=== PATIENT | female | born 1950 | race Caucasian/White ===

== ENCOUNTER 2016-11-17 07:58 | Inpatient (IN) | payer MEDICARE, OTHER ==
--- NOTE | 2016-11-17 14:23 | RAD ---
EXAM DESCRIPTION: Chest,2 Views CLINICAL HISTORY: TOBACCO DEPENDENCE SYNDROME COMPARISON: None TECHNIQUE: PA/lateral FINDINGS: The lungs are well expanded and clear. No infiltrates or effusions or masses are noted. The heart is normal in size and shape with no evidence of vascular congestion. The audrey and mediastinum demonstrate normal contours. The bony spine and chest wall is normal for age in appearance. IMPRESSION: Normal chest, two views Electronically signed by: Oj Ernandez MD 11/17/2016 2:22 PM CDT
--- NOTE | 2016-11-17 14:40 | CT ---
EXAM DESCRIPTION: CT ABDOMEN AND PELVIS WITH CONTRAST CLINICAL HISTORY: UNSPECIFIED ABDOMINAL PAIN COMPARISON: None Available. TECHNIQUE: CT of the abdomen and pelvis are performed during IV bolus administration of nonionic IV contrast. Oral contrast media is not administered This exam was performed according to our departmental dose-optimization program, which includes automated exposure control, adjustment of the mA and/or kV according to patient size and/or use of iterative reconstruction technique. FINDINGS: The lung bases are clear without infiltrates or effusions or mass. A small retrocardiac hiatal hernia is present. The liver is diffusely fatty replaced without focal mass. The gallbladder is surgically absent with normal ductal structures. Mild splenomegaly is present. Pancreas is normal in appearance without atrophy or cyst or mass. The adrenal glands are normal. The kidneys intensely enhance with no evidence of hydronephrosis or stone formation. One tiny right cortical low-density probable subcentimeter cyst is present with two adjacent similar structures involving the lower pole of the left kidney laterally. The stomach and small bowel are unremarkable. Mild diverticulosis of the left colon is present without acute inflammation. The right colon is abnormal distal or cephalad to the region of the cecum and ileocecal valve. An occasional diverticulum of the right colon is noted. Tiny amount of air lies just medial and cephalad to the ileocecal valve and suggest a tiny contained perforation without free abdominal air. A drainable abscess or fluid collection is not apparent. The terminal ileum and cecum appear essentially normal in appearance. Continuing into the pelvis the uterus is surgically absent and no free pelvic fluid is noted in the bladder is incompletely distended but normal in appearance. The anterior abdominal wall is unremarkable moderate degenerative changes at in the mid and lower lumbar spine without compression deformity is noted. Mild levoscoliosis of the spine is apparent. IMPRESSION: 1. Abnormal right colon with inflammatory changes extending from the level of the ileocecal valve to the hepatic flexure with mild bowel wall thickening and moderate surrounding pericolic mesenteric inflammatory changes with one or two bubbles of suspected loculated air extraluminal just cephalad to the ileocecal valve. Right-sided colitis or diverticulitis with a contained small perforation is suspected. 2. The cecum and terminal ileum in expected region of the appendix appear normal without identification of the appendix suggesting prior resection. 3. Scattered small number of diverticula in the right colon and moderate left colonic diverticulosis without inflammation of the left colon. 4. Fatty replaced liver and modest splenomegaly with prior cholecystectomy noted. 5. Degenerative disc disease and mild levoscoliosis of the spine. 6. Results will be discussed with the patient's caregiver Electronically signed by: Oj Ernandez MD 11/17/2016 2:39 PM CDT
[2016-11-17] MEDS ORDERED: SODIUM CHLORIDE 0.9% (FLUSH) 10 ML SYG IV PRN (17:02)
[2016-11-17] MEDS ORDERED: GLUCAGON INJ 1 MG VIAL SUBCU PRN (17:02)
[2016-11-17] MEDS ORDERED: DEXTROSE 50% 25 GM/50 ML SYG IV PRN (17:02)
--- NOTE | 2016-11-17 17:04 | HP ---
SUPERVISING PHYSICIAN: Uziel Kenyon M.D. CHIEF COMPLAINT: Acute abdominal pain. HISTORY OF PRESENT ILLNESS: Ms. Robles is a 66 year-old female patient who was seen in [facility] today by Divina Elmore, Nurse Practitioner, for abdominal pains. The patient notes that she had started having some abdominal pains 2 weeks previous to the visit today. She noted that she went to her son's and ate some food that she normally does not eat, and started having lower abdominal pains that were sharp and felt more gassy and bloated for about 24 hours. The pain then returned 2 days later and has not gone away since. She notes that the pain ranges anywhere from 1 to 10 on the pain scale depending on if she is eating or ambulatory. She denies any fevers, chills, nausea or vomiting, but does report that she has had some watery type diarrhea, but deines any hematochezia. Laboratory studies today in the clinic showed her to have a normal white count, H&H and differential. Chemistries only showed mildly low potassium and normal liver functions. Urinalysis was within normal limits as well. She was sent to the hospital for a CT of the abdomen and pelvis with contrast and per radiology interpretation it was noted that the patient had an abnormal right colon with inflammatory changes that were extending from the level of the ileocecal valve to the hepatic flexure with some note of some bubbles suspected of loculated air extraluminal just cephalad to the ileocecal valve. Concerns for right sided colitis and diverticulitis with a small perforation were suspected. The patient was then referred back to the clinic. Dr. Lin was consulted by Divina Elmore who then requested that the patient be admitted to the hospital for continuation of treatment and further evaluation. The patient was directly admitted in stable condition. PAST MEDICAL HISTORY: 1. Chronic constipation. 2. Osteoarthritis. 3. Macular degeneration. 4. Hypertension. PAST SURGICAL HISTORY: 1. Bowel surgery with a partial resection secondary to sepsis from a ruptured appendix in 1972. 2. Exploratory surgery secondary to the previous bowel resection that occurred in 1974 that was performed in 1983. 3. Cholecystectomy in 2004. 4. Hysterectomy in 1984. 5. Appendectomy in 1972. HOME MEDICATIONS: Please refer to the electronic medical records for an updated verified list of medications. ALLERGIES: CODEINE results in nausea. FAMILY HISTORY: Father had a history of alcohol abuse and secondary to malignant tumor of the colon in 1980. Mother had dementia and at age 94, also had diabetes. She has 1 brother who is living but has had a previous myocardial infarction at age 33. 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 She lives in [place]. She is . She smokes 1-1/2 packs per day and has so for many years. She denies any alcohol or illicit drug use. REVIEW OF SYSTEMS: CONSTITUTIONAL: The patient denies any fevers, chills or weight changes. HEENT: Denies any nasal congestion, headaches, sore throats. RESPIRATORY: Denies any cough, shortness of breath. CARDIOVASCULAR: Denies any chest pains, palpitations or syncopal episodes. ABDOMEN: As noted in the History of Present Illness, right lower and left abdominal pains but denies any nausea or vomiting, but has had some watery diarrhea. GENITOURINARY: Denies any dysuria, hematuria or other urinary symptoms. NEUROLOGIC: Denies any neurologic symptoms, headaches, dizziness, syncopal episodes or vision changes. PHYSICAL EXAMINATION: VITAL SIGNS: On admission, blood pressure 130/80, heart rate 85, saturations 94 % on room air, temperature 97.3. Weight 113.3 kg. GENERAL: The patient is in no acute distress on admission. She appears to be comfortable. She is alert, well-nourished, well-hydrated. HEENT: Tympanic membranes are clear bilaterally. Oropharynx was pink and moist without any lesions. NECK: Supple, non-tender with full range of motion. No jugular venous distention. CHEST: Lungs were clear to auscultation bilaterally without any rhonchi, wheezing or rales. CARDIOVASCULAR: Regular rate and rhythm without appreciable murmurs, gallops, or rubs. ABDOMEN: Obese, soft with diffuse tenderness to the right and left lower quadrants with no rebound tenderness noted. No guarding. EXTREMITIES: No clubbing, cyanosis or edema. NEUROLOGIC: She is alert and oriented times three. Facial features are symmetrical. Extraocular movements are within normal limits. There was no notable nystagmus. Cranial nerves II=XII are grossly intact. LABORATORY: CBC showed to be within normal limits with a white count of 7.5. Chemistries showed low potassium of 3.4, otherwise electrolytes were within normal limits. Creatinine was 0.53, BUN 14, glucose 144, hemoglobin A1c was 5.4 , lactic acid 1.1, magnesium 2.2, calcium 8.7. Liver functions were within normal limits. Amylase and lipase were pending. Urinalysis showed to be within normal limits except for just a slightly elevated urobilinogen. MICROBIOLOGY: Blood cultures are pending times 2. RADIOLOGY: Chest x-ray prior to admission per radiology interpretation two view chest showed normal chest. She also had an abdominal/pelvic CT with contrast and per radiology interpretation there was note of abnormal right colon with inflammatory changes extending from the level of the ileocecal valve to the hepatic flexure with mild bowel wall thickening and moderate pericolic mesenteric inflammatory changes with 1 or 2 bubbles of suspected loculated air extraluminal just cephalad to the ileocecal valve. Right sided colitis or diverticulitis would contain small perforation was suspected. Please see full report for full details. ASSESSMENT: 1. Acute abdominal pain with concerns for right sided colitis versus diverticulitis with a microperforation and notable mesenteric inflammatory changes. 2. History of chronic constipation. 3. History of arthritis. 4. History of macular degeneration. 5. Mild electrolyte imbalance to include hypokalemia. 6. Obesity with body mass index of 36.9. 7. Nicotine addiction with a 45 to 50 pack year smoking habit PLAN: The patient was directly admitted to the Medical/Surgical floor for further treatment and evaluation with concerns for colitis versus diverticulitis with a microperforation as noted above. Dr. Lin has been consulted and will see the patient to assist with ongoing plan of care. She will be NPO for bowel rest with supportive IV fluids to include initially half normal saline with 20 meq of potassium at 125 cc an hour. She will be started ont parenteral antibiotics to include Levaquin and Flagyl after completion of blood cultures. She will be provided pain management with Morphine as needed as well as antiemetics with Zofran and Phenergan. Will plan to repeat an abdominal series and laboratory studies in the morning and await Dr. Lin's consultation. The patient will be on telemetry and monitored closely. Will start Protonix for gastric protection while she remains NPO. She will be encouraged to stop smoking and provided with nicotine patch while in hospital. Anticipate length of stay to be 3 to 5 days pending clinical improvement and stabilization. Once able to be discharged, she will need close clinical followup in the outpatient setting. Until then, will continue to monitor and treat appropriately. #[id number] and [id number] [facility]
[2016-11-17] MEDS ORDERED: PIPERACILLIN/TAZOBACTAM 3.375 GM VIAL IVPB ONE (17:26)
[2016-11-17] MEDS ORDERED: SODIUM CHLORIDE 0.9% 100ML 100 ML IVPB ONE (17:27)
[2016-11-17] MEDS ORDERED: IV SET AND CAP CHANGE INJ INJ SCH (17:30)
[2016-11-17] MEDS ORDERED: PIPERACILLIN/TAZOBACTAM 3.375 GM in SODIUM CHLORIDE 0.9% 100ML 100 ML IVPB SCH (17:30)
[2016-11-17] MEDS ORDERED: NICOTINE PATCH 14 MG TD SCH (19:00)
[2016-11-17] MEDS: KCL 20MEQ/0.45% NS 1,000 ML IVS PRN (19:55)
[2016-11-17] MEDS ORDERED: levoFLOXacin 500MG IV 100 ML IVPB ONE (20:14)
[2016-11-17] MEDS: MORPHINE SULFATE INJ 10 MG/ML VIAL IV PRN (20:54)
[2016-11-17] MEDS ORDERED: SODIUM CHLORIDE 0.9% (FLUSH) 10 ML SYG IV SCH (21:00)
[2016-11-17] MEDS: INSULIN LISPRO 100 UNITS/ML PEN SUBCU SCH (21:03)
[2016-11-17] MEDS: levoFLOXacin 500MG IV 500 MG in PREMIX BAG 1 BAG IVPB SCH (21:05)
[2016-11-17] MEDS ORDERED: PANTOPRAZOLE SODIUM IV 40 MG VIAL IV SCH (22:30)
[2016-11-17] MEDS: TEMAZEPAM 15 MG CAP PO PRN (22:32)
[2016-11-17] MEDS: ONDANSETRON INJ 4 MG/2 ML VIAL IV PRN (22:32)
[2016-11-17] MEDS: metroNIDAZOLE IV PREMIX 500MG 500 MG in PREMIX BAG 1 BAG IVPB SCH (22:37)
[2016-11-18] MEDS ORDERED: metroNIDAZOLE IV PREMIX 500MG 100 ML IVPB ONE ×3 (05:10→19:38)
[2016-11-18] MEDS: metroNIDAZOLE IV PREMIX 500MG 500 MG in PREMIX BAG 1 BAG IVPB SCH ×3 (05:12→21:22)
[2016-11-18] MEDS: INSULIN LISPRO 100 UNITS/ML PEN SUBCU SCH ×4 (07:29→17:53)
--- NOTE | 2016-11-18 08:21 | RAD ---
EXAM DESCRIPTION: Abdomen Flat Upright CLINICAL HISTORY: 66 years Female, diverticulitis vs colitis RLQ w/ Microperferation COMPARISON: None. FINDINGS: A single view of the abdomen demonstrates degenerative change and scoliosis of the lumbar spine to the left with a normal bowel gas pattern. No evidence of obstruction or ileus is noted on this supine view. No secondary signs of perforation are noted but a supine view of the abdomen is significantly insensitive to evaluation for free abdominal perforation. No soft tissue masses are seen and no unusual calculi noted. IMPRESSION: Nonspecific abdomen one view without evidence of obstruction or ileus. No obvious a right lower quadrant mass or unusual gas collection is seen. Electronically signed by: Oj Ernandez MD 11/18/2016 8:19 AM CDT
[2016-11-18] MEDS: KCL 20MEQ/0.45% NS 1,000 ML IVS PRN ×2 (08:31→18:07)
[2016-11-18] MEDS ORDERED: MULTIPLE VITAMINS W/ MINERALS 1 EA TAB PO SCH (09:00)
[2016-11-18] MEDS: MORPHINE SULFATE INJ 10 MG/ML VIAL IV PRN ×2 (13:25→17:07)
--- NOTE | 2016-11-18 13:42 | CONS ---
DATE OF CONSULTATION: 11/18/16 HISTORY OF PRESENT ILLNESS: The patient is a 66-year-old female who was admitted from [facility] for right sided abdominal pain and an abnormal CT scan worrisome for a microperforation of a possible right sided diverticulum. She denied fever or chills. She has had the pain for at least two weeks. She initially associated with eating food that she is not used to eating with her children, but no one else got sick with this. She has had some loose stools which she calls watery type diarrhea, but has had no hematochezia or hematemesis or melena. PAST MEDICAL HISTORY: 1. Osteoarthritis. 2. Macular degeneration. 3. Hypertension. PAST SURGICAL HISTORY: 1. Bowel resection for a badly ruptured appendix, likely a cecectomy or limited right hemicolectomy with primary anastomosis. That was done here in [place] in 1972. 2. Cholecystectomy. 3. Hysterectomy. 4. Appendectomy. 5. Exploratory laparotomy in 1983 for the possibility of . CURRENT MEDICATIONS: Please see nursing notes for medications. ALLERGIES: CODEINE WHICH CAUSES NAUSEA. FAMILY HISTORY: Positive for carcinoma of the colon in her father, diabetes and a brother who had a myocardial infarction at age 33. SOCIAL HISTORY: The patient is . 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 She smokes 1-1/2 packs of cigarettes per day and has greater than a 50 pack year history of tobacco abuse. She denies alcohol use or street drug use. REVIEW OF SYSTEMS: There has been no weight loss, no previous illness, episode of like illness. She does have some headaches. She denies chest pain or shortness of breath. She denies urinary tract symptoms. She denies loss of strength, dizziness. PHYSICAL EXAMINATION: GENERAL: The patient is awake, alert, cooperative, in minimal distress. VITAL SIGNS: The patient is currently afebrile, normotensive. HEENT: Sclerae nonicteric. Mucous membranes moist. NECK: Without adenopathy. BACK: Without CVA tenderness. CHEST: Equal breath sounds bilaterally. HEART: Regular. ABDOMEN: Soft. Tenderness in the right lower quadrant to deep palpation. There is no mass or guarding noted. Bowel sounds are active. PELVIC/RECTAL: Deferred. EXTREMITIES: Without cyanosis, clubbing or edema. LABORATORY: Normal white count. Potassium somewhat low. Creatinine 0.53. Hemoglobin A1c 5.4. Amylase and lipase were within normal limits. Urinalysis was okay. Chest x-ray was within normal limits. As noted, CT scan showed inflammatory changes around the level of would have been the ileocecal valve with bowel wall thickening and pericolic inflammatory changes with bubbles which would appear to be loculated air, extraluminal in that area. ASSESSMENT: 1. Abdominal pain secondary to colitis or diverticulitis with microperforation. PLAN: Continue NPO except for ice chips. Continue IV antibiotics. Advance diet as the patient's pain resolves. Since she has a normal white count and no fever, assume she resolves, she will probably require 10 to 14 days of outpatient antibiotic. #[id number] [facility]
--- NOTE | 2016-11-18 15:02 | PN ---
SUPERVISING PHYSICIAN: Uziel Kenyon MD DATE: 11/18/16 SUBJECTIVE: The patient states her pain is much better today. She has been afebrile. She still does have some pain towards the lower left and right quadrants. She has had no nausea or vomiting. OBJECTIVE: VITAL SIGNS: Temperature 97.9. Pulse 74. Blood pressure 124/86. Respirations 20. Saturation 97% on room air. I&Os show positive balance of 697 with 2247 in, 1550 out. Weight 112.0 kg. CHEST: Lungs clear to auscultation bilaterally. HEART: Regular rate and rhythm. ABDOMEN: Obese, but soft. Positive bowel sounds although diminished somewhat. Mild tenderness noted on palpation across the left lower quadrant. EXTREMITIES: No cyanosis, clubbing or edema. NEUROLOGIC: Alert and oriented times three. LABORATORY: CBC remains within normal limits. Chemistries continue to show low potassium despite replacement with potassium now 3.5, BUN 12, creatinine 0.47, glucose 103, calcium 8.2. MICROBIOLOGY: Blood cultures remain negative. RADIOLOGY: Abdominal x-ray this morning per radiologic interpretation, single view abdomen, shows nonspecific abdomen without any evidence of obstruction or ileus. ASSESSMENT: 1. Abdominal pain secondary to colitis or diverticulitis with microperforation , currently on parenteral antibiotic to include Levaquin and Flagyl. 2. History of chronic constipation. 3. History of arthritis. 4. History of macular degeneration. 5. Persistent mild electrolyte imbalance to include hypokalemia despite replacement. 6. Obesity with body mass index of 36.9. 7. Nicotine addiction with a 45 to 50 pack year smoking habit PLAN: We will continue current plan of care to include NPO with the exception of ice chips. We will continue IV antibiotics to include Levaquin and Flagyl. We will plan to advance her diet as her pain resolves. We will continue her on her laboratory studies with anticipate of discharge in the next two to three days pending the patient's clinical progression. We will anticipate she will need continued antibiotic therapy to include up to 10 to 14 days of antibiotics in the outpatient setting once discharged. Until discharge, we will continue to monitor the patient closely and treat appropriately. #[id number] [facility]
[2016-11-18] MEDS: ONDANSETRON INJ 4 MG/2 ML VIAL IV PRN (17:20)
[2016-11-18] MEDS ORDERED: levoFLOXacin 500MG IV 100 ML IVPB ONE (18:02)
[2016-11-18] MEDS: levoFLOXacin 500MG IV 500 MG in PREMIX BAG 1 BAG IVPB SCH (18:04)
[2016-11-18] MEDS ORDERED: NICOTINE PATCH 14 MG TD ONE (19:38)
[2016-11-18] MEDS ORDERED: PANTOPRAZOLE SODIUM IV 40 MG VIAL ONE (19:39)
[2016-11-18] MEDS: PANTOPRAZOLE SODIUM IV 40 MG VIAL IV SCH (21:18)
[2016-11-18] MEDS: TEMAZEPAM 15 MG CAP PO PRN (21:25)
[2016-11-18] MEDS: NICOTINE PATCH 14 MG TD SCH (21:25)
[2016-11-19] MEDS: INSULIN LISPRO 100 UNITS/ML PEN SUBCU SCH ×4 (01:12→17:19)
[2016-11-19] MEDS: KCL 20MEQ/0.45% NS 1,000 ML IVS PRN (04:15)
[2016-11-19] MEDS ORDERED: metroNIDAZOLE IV PREMIX 500MG 100 ML IVPB ONE ×3 (05:14→19:07)
[2016-11-19] MEDS: metroNIDAZOLE IV PREMIX 500MG 500 MG in PREMIX BAG 1 BAG IVPB SCH ×3 (05:29→20:43)
[2016-11-19] MEDS ORDERED: ACETAMINOPHEN 325 MG TAB PO PRN (13:39)
[2016-11-19] MEDS ORDERED: KCL 20MEQ/0.45% NS 0 ML IVS ONE (13:49)
[2016-11-19] MEDS: SODIUM CHLORIDE 0.9% (FLUSH) 10 ML SYG IV SCH ×2 (14:00→20:42)
[2016-11-19] MEDS: MAGNESIUM HYDROXIDE 30 ML UD PO ONE ×2 (15:15→15:28)
[2016-11-19] MEDS ORDERED: levoFLOXacin 500MG IV 100 ML IVPB ONE (16:50)
[2016-11-19] MEDS: levoFLOXacin 500MG IV 500 MG in PREMIX BAG 1 BAG IVPB SCH (17:31)
[2016-11-19] MEDS: PANTOPRAZOLE SODIUM IV 40 MG VIAL IV SCH (20:43)
[2016-11-19] MEDS: NICOTINE PATCH 14 MG TD SCH (21:02)
[2016-11-19] MEDS: TEMAZEPAM 15 MG CAP PO PRN (21:13)
[2016-11-20] MEDS ORDERED: metroNIDAZOLE IV PREMIX 500MG 100 ML IVPB ONE ×2 (04:51→07:11)
[2016-11-20] MEDS: metroNIDAZOLE IV PREMIX 500MG 500 MG in PREMIX BAG 1 BAG IVPB SCH ×3 (04:57→12:48)
[2016-11-20] MEDS: SODIUM CHLORIDE 0.9% (FLUSH) 10 ML SYG IV SCH (08:14)
--- NOTE | 2016-11-20 08:28 | PN ---
SUPERVISING PHYSICIAN DATE: 11-19-16 SUBJECTIVE: The patient's pain is much less today. She has had no nausea, she is ambulatory and she remains afebrile, She has actually been up to the shower. OBJECTIVE: VITAL SIGNS: T-max 98.7, pulse 70, blood pressure 124/82, respirations 20, saturation 96% on room air. I&O - positive balance of 520 with 2920 in and 2400 out. Weight 113.3 kg. CHEST: Clear to auscultation. HEART: Regular rate and rhythm. ABDOMEN: Obese soft, still remains some tenderness in the right lower quadrant to very deep palpation, No rebound tenderness. EXTREMITIES: No cyanosis, clubbing, or edema. NEUROLOGIC: She is alert and oriented x 3. LABORATORY: Chemistries today show normal electrolytes with potassium of 3.6, BUN 8, creatinine 0.55, glucose 115, calcium 8.2. MICROBIOLOGY: Blood cultures remain negative after 24 hours. ASSESSMENT: 1. Abdominal pain secondary to colitis versus diverticulitis with microperforation, on continued parenteral antibiotics to include Levaquin and Flagyl. 2. Chronic constipation. 3. Arthritis. 4. Macular degeneration. 5. Mild electrolyte imbalance to include hypokalemia, now normalized after IV replacement. 6. Obesity with body mass index of 36.9. 7. Nicotine addiction with a 45 to 50-pack year smoking habit PLAN: The patient has not been febrile. She said there is much decrease in the pain level. After discussing the case with Dr. Lin, we will advance the patient to clear liquids today and monitor closely. She will continue on parenteral antibiotics to include Levaquin and Flagyl. As the patient advances to clear liquids, we will plan to saline-lock her IV fluids. Will anticipate discharge possibly tomorrow once the patient advances diet and showing improvement clinically. Once discharged, she will need continuation of antibiotic therapy for an additional 10 to 14 days. Until discharge, we will continue to monitor the patient closely and treat appropriately. #[id number] [facility]
--- NOTE | 2016-11-20 09:28 | PCM.CORE ---
Physician DVT/VTE - Nurse DVT Assessment & Total Each Risk Factor Represents 3 Points: Medical PT with Hx of IL, CHF, Severe infection/sepsis Each Risk Factor Represents 2 Points: Age 60-74 Each Risk Factor Represents 1 Point: Hx of smoking past year Each Risk Factor is 1 Point: Obesity (BMI >25) DVT Assessment Score: 7 - 3-4 High Risk Treatments: Early Ambulation * Pharmacological: Enoxaparin 40 mg SQ Daily
[2016-11-20] MEDS ORDERED: ENOXAPARIN SODIUM 40 MG/0.4 ML SYG SUBCU SCH (09:30)
[2016-11-20 10:08] VITALS: BP 125/79; TEMP 97.8; O2SAT 97
--- NOTE | 2016-11-20 11:34 | PN ---
DATE: 11/20/16 SUPERVISING PHYSICIAN: Oj Orozco M.D. SUBJECTIVE: The patient is feeling better today. She was able to advance her diet to a mechanical soft this morning. She tolerated the previous diet without any complications. She has been ambulatory. She has been afebrile. Says her pain is no longer present. OBJECTIVE: VITAL SIGNS: Temperature 96.4, pulse 72, blood pressure 107/63, respirations 20, satting 96% on room air. I's and O's show a negative balance of 320 with 3180 in, 3500 out. CHEST: Clear to auscultation bilaterally. HEART : Regular rate and rhythm. ABDOMEN: Obese but soft. There is no notable tenderness today even with deep palpation. Bowel sounds are present. She has had 1 bowel movement. EXTREMITIES: No clubbing, cyanosis or edema. NEUROLOGIC : She is alert and oriented times three. LABORATORY: No additional laboratory studies were repeated today. Blood sugars have ranged from in the 90s to 120s. MICROBIOLOGY: Blood cultures remain negative at 48 hours. ASSESSMENT: 1. Abdominal pain secondary to colitis versus diverticulitis with a microperforation on continued parenteral antibiotics to include Levaquin and Flagyl showing improvement with the patient advancing her diet. 2. Chronic constipation showing some improvement. 3. Arthritis. 4. Macular degeneration. 5. Electrolyte imbalance, resolved that included hypokalemia, normalized after IV replacement. 6. Obesity with a body mass index of 36.9. 7. Nicotine addiction with a 45 to 50 pack year smoking habit, encouraged to stop smoking. PLAN: Will continue to advance the patient's diet today. Anticipate possibly discharging later tonight if not tomorrow. Will await Dr. Lin's assessment and recommendations. Once the patient is clinically able to be discharged, she will need close clinical followup at [facility] as well as continued antibiotic therapy for a total of 10 to 14 days. After that completion of therapy, she will certainly need a followup with gastrointestinal specialist for a colonoscopy in the near future. Until discharge, will continue to monitor and treat appropriately. #[id number] [facility]
[2016-11-20] MEDS ORDERED: metroNIDAZOLE 500 MG TAB ONE (12:26)
[2016-11-20] MEDS ORDERED: metroNIDAZOLE 500 MG TAB PO ONE (13:36)
--- NOTE | 2016-11-21 08:55 | DS ---
SUPERVISING PHYSICIAN: Oj Orozco MD DISCHARGE DIAGNOSIS: 1. Abdominal pain secondary to colitis versus diverticulitis with a microperforation, requiring parenteral antibiotics with Levaquin and Flagyl, showing improvement with the patient advancing to a low residual diet prior to discharge, remaining afebrile and without any pain, requiring continued antibiotics in the outpatient setting. 2. Chronic constipation, showing improvement with two bowel movements prior to discharge. 3. Arthritis. 4. Macular degeneration. 5. Electrolyte imbalance with moderate hypokalemia, normalized prior t discharge after IV replacement. 6. Obesity with a body mass index of 36.9. 7. Nicotine addiction with a 45 to 50 pack year smoking history, encouraged to stop smoking. HISTORY OF PRESENT ILLNESS: Ms. Robles is a 66-year-old, female patient who presented from [facility], referred by Divina Elmore , Nurse Practitioner, for abdominal pains. The patient notes that she had started having some abdominal pains 2 weeks previous to the visit the day of admission. She noted that she went to her son's and ate some food that she normally does not eat, and started having lower abdominal pains shortly after that she described as sharp, gassy and bloating that lasted for about 24 hours. The pain then resolved and then returned 2 days later. The pain had not receded since. She noted that the pain ranged anywhere from 1 to 10 on the pain scale depending on if she is eating or ambulatory. She denies any fevers, chills, nausea or vomiting, but did report that she had had some watery type diarrhea, but denied any hematochezia. Laboratory studies in the clinic showed her to have a normal white count, H&H and differential. Chemistries only showed mildly low potassium and normal liver functions. Urinalysis was within normal limits. She was at that point sent to the hospital for a CT of the abdomen and pelvis with contrast and per radiology interpretation it was noted that the patient had an abnormal right colon with inflammatory changes that were extending from the level of the ileocecal valve to the hepatic flexure with some note of some bubbles suspected of loculated air extraluminal just cephalad to the ileocecal valve. Concerns for right sided colitis and diverticulitis with a small perforation were suspected. The patient was then referred back to the clinic. Dr. Lin was consulted by Divina Elmore who then requested that the patient be admitted to the hospital for continuation of treatment and further evaluation. The patient was directly admitted from [facility] in stable condition. LABORATORY: CBC on admission was within normal limits and remained so through admission and at discharge. Her chemistries initially showed a mildly low potassium of 3.4, BUN 14, creatinine 0.53, glucose 144, hemoglobin A1c 5.4, lactic acid 1.1, magnesium 2.2, calcium 8.7. Liver functions all were within normal limits. Her liver panel showed triglycerides 307, cholesterol 224, LDL 142, HDL 30. Amylase 56, lipase 32, TSH normal at 2.05. Urinalysis was within normal limits except for just notable 2.0 urobilinogen on dipstick. Chemistries at discharge showed normal electrolytes with potassium 3.6. MICROBIOLOGY: She had two sets of blood cultures that remained negative at 3 days. RADIOLOGY: Radiographic studies included initially a chest x-ray at the clinic prior to admission and per radiologic interpretation showed normal two view chest. Abdominopelvic CT with contrast prior to admission per radiologic interpretation showed inflammatory changes of the right colon as described above with concerns for right sided colitis or diverticulitis with a contained small perforation. Please refer to that final report for full details. Abdominal x-ray the morning after admission per radiologic interpretation showed nonspecific abdomen, one view, without evidence of obstruction or ileus. No right lower quadrant mass or unusual gas collections were seen. She had no additional radiographic studies after that point. CONSULTATIONS: Dr. Lin, general surgery, please refer to his note for details. HOSPITAL COURSE: Ms. Robles was directly admitted from [facility] as noted for concerns for diverticulitis or colitis with microperforation. The patient was stable on admission and had a normal lactic acid. She was started on antibiotics with Levaquin and Flagyl after blood cultures were completed. She was made NPO and provided IV fluids with potassium replacement. She did remain NPO for 48 hours at which time she was advanced to clear liquids which she did tolerate as she was no longer having any abdominal pains and then advanced a soft mechanical diet which she tolerated. She had no nausea or vomiting and had no recurrence of pain. She had no fevers and was felt clinically well enough to be discharged. She had a consultation with Dr. Lin who was following the patient closely during clinical progression and prior to discharge. Please refer to his report for full consultation note. PLAN: The patient was found to be clinically stable without any pain and tolerating diet on 11/20/16. She was discharged to have close clinical followup with Dr. Lin in ten days as well as [facility]. She was told to resume her home medications as previous to hospitalization and start new medications as directed. The patient was encouraged to continue with smoking cessation and to refer to [facility] for further assistance in a smoking cessation programs. MEDICATIONS AT DISCHARGE: New prescriptions included: 1. Levaquin daily for 10 days, #10. 2. Flagyl q.8h., #30. 3. Align 4 mg daily to assist with prevention of antibiotic associated diarrhea. DIET AT DISCHARGE: Low residual as tolerated. ACTIVITY: Increase as tolerated. CONDITION AT DISCHARGE: Stable and improved. #[id number] [facility]
[2016-11-21] MEDS ORDERED: ENOXAPARIN SODIUM 40 MG/0.4 ML SYG SUBCU SCH (09:00)
== END 2016-11-20 14:00 | disposition home or self-care (01) | DRG 392 ==
LOC: CT 07:58 → MS 16:50 → UNDOADMIN 17:02 → MS 17:02
PROVIDERS: ADMIT Nurse Practitioner Family; ATTEND Nurse Practitioner Family
PROC: BW21YZZ Computerized Tomography (CT Scan) of Abdomen and Pelvis using Other Contrast (ICD-10-PCS; principal; 2016-11-17)
DX: K57.20 Diverticulitis of large intestine with perforation and abscess without bleeding (principal); K52.9 Noninfective gastroenteritis and colitis, unspecified; M19.90 Unspecified osteoarthritis, unspecified site; H35.30 Unspecified macular degeneration; I10 Essential (primary) hypertension; K59.09 Other constipation; E87.6 Hypokalemia; E66.9 Obesity, unspecified; F17.210 Nicotine dependence, cigarettes, uncomplicated; Z88.5 Allergy status to narcotic agent; Z90.49 Acquired absence of other specified parts of digestive tract; Z68.36 Body mass index [BMI] 36.0-36.9, adult

== ENCOUNTER → 2017-02-15 | Outpatient (CLI) | payer MEDICARE, OTHER ==
--- NOTE | 2017-02-15 14:28 | US ---
EXAM DESCRIPTION: Abdomen,Complete: Ultrasound. CLINICAL HISTORY: SPLENOMEGALY. Hepatic steatosis. COMPARISON: CT abdomen and pelvis 11/17/2016. TECHNIQUE: Transabdominal scannin-dimensional and Doppler modes. FINDINGS: The gallbladder is surgically absent. No fluid in the gallbladder fossa. Common bile duct caliber 5.3 mm which is within normal limits. No stones in the visualized portion of the duct. Not tender with transducer pressure. The liver demonstrates increased echogenicity; contour of the liver capsule is smooth where seen. No fluid around the liver. Intrahepatic biliary ducts are non-dilated. Craniocaudal dimension in the mid-clavicular axis is 19.3 cm. Pancreas head, body, and tail normal in size and echogenicity. Pancreatic duct is not dilated. Normal Doppler vascularity in the chadwick hepatis. Abdominal aorta diameter proximal 1.9 cm. Mid 2.0 cm. Distal 1.7 cm. IVC visualized; normal caliber. Spleen normal echogenicity; long axis measurement is 17.9 cm. No fluid in the spleno-renal fossa. Right kidney measures 10.0 x 5.7 x 4.4 cm. Normal mid renal cortical thickness. Echogenicity normal with no hydronephrosis, no large calcifications, and no perinephric fluid. Contour smooth. Vascularity normal. Ureter not visualized. Left kidney measures 10.8 x 5.6 x 5.0 cm, normal mid renal cortical thickness. 13 mm anechoic cyst with well-defined ramírez projecting from the lower cortex. Echogenicity otherwise normal with no hydronephrosis, no large calcifications, and no perinephric fluid. Contour smooth. Vascularity normal. Ureter not visualized. IMPRESSION: 1. Mild to moderate hepatomegaly with steatosis/fatty infiltration. This can be related to patient body habitus, or a variety of metabolic and toxic conditions. Normal ducts in vascularity. No ascites. Normal ultrasound of the pancreas. Prior cholecystectomy. 2. Splenomegaly with normal echogenicity and vascularity. No peritoneal or retroperitoneal masses. No ascites. 3. Small cyst inferior juxta cortical left kidney. Otherwise both kidneys are unremarkable. Electronically signed by: Robert Kitchen MD 02/15/2017 2:27 PM CDT
--- NOTE | 2017-02-16 14:38 | MAM ---
EXAM DESCRIPTION: 3D Screening BILATERAL: Digital Mammography. CLINICAL HISTORY: 66 yearsFemaleSCREENING no complaints. No family history of breast cancer. Hysterectomy. No HRT. Prior left benign biopsy.. COMPARISON: 2-D digital screening bilateral study 05/09/2013.. No prior reports available. TECHNIQUE: Bilateral CC and MLO projection full-field images, 3-D tomosynthesis digital mammographic technique. Also bilateral synthesized CC/ MLO full-field images. CAD not utilized. FINDINGS: The breast parenchymal density pattern is: Almost entirely fatty. No skin thickening or nipple retraction bilateral intramammary lymph nodes. Bilateral skin calcifications and solitary intramammary calcifications. No focal, stellate mass or density, focal asymmetry , and no suspicious microcalcifications bilaterally. Stable mammograms compared to prior study, taking into account differences in mammographic technique IMPRESSION: BI-RADS CATEGORY: 2 - BENIGN FINDINGS. FOLLOW UP: Routine digital bilateral screening, one year interval from February 2017. Written communication explaining the IMPRESSION and follow-up, will be mailed to the patient and referring health care provider. According to the [employer], yearly mammograms are recommended starting at age 40 and continuing as long as a woman is in good health. Any breast change noted on a breast self-exam should be reported promptly to the patient's healthcare provider. Breast MRI is recommended for women with an approximately 20-25% or greater lifetime risk of breast cancer, including women with a strong family history of breast or ovarian cancer and women who have been treated for Hodgkin's disease. A negative mammographic report should not delay tissue diagnosis in patients with significant clinical history or physical findings. Extremely dense breast tissue limits the sensitivity of digital mammography. Electronically signed by: Robert Kitchen MD 02/16/2017 2:37 PM CDT
== END | disposition home or self-care (01) ==
LOC: LAB.O 08:40
PROVIDERS: ATTEND Internal Medicine
DX: Z12.31 Encounter for screening mammogram for malignant neoplasm of breast (principal); C20 Malignant neoplasm of rectum; D53.1 Other megaloblastic anemias, not elsewhere classified; R16.1 Splenomegaly, not elsewhere classified; R23.3 Spontaneous ecchymoses
CPT/HCPCS: 36415; 76700; 77063; 82607; 82746; 86039; 86431; G0202

== ENCOUNTER 2019-03-15 07:23 | Day surgery (SDC) | payer MEDICARE, OTHER ==
[~2019-03-15 07:23] MED LIST: LACTATED RINGERS 1,000 ML ONE; LIDOCAINE 1% 10 ML VIAL INJ ONE; PROPOFOL 200 MG/20 ML VIAL IV ONE
[2019-03-15] MEDS ORDERED: LACTATED RINGERS 1,000 ML IVS ONE (08:20)
--- NOTE | 2019-03-15 09:52 | OP ---
DATE OF PROCEDURE: 03/15/19 PREOPERATIVE DIAGNOSIS: 1. History of colon cancer post right colectomy with a 2 year screen. POSTOPERATIVE DIAGNOSIS: 1. Colonic polyps at 40 cm and 25 cm. PROCEDURE: 1. Colonoscopy for forceps removal of polyps, one at 40 cm, 2.5 cm, and three at 25 cm, ranging from about 2 mm to 3 mm. SURGEON: Uziel Jeter MD ANESTHESIA: General. COMPLICATIONS: None. ESTIMATED BLOOD LOSS: None. CONDITION: Stable. PLAN: Discharge. INDICATION: As stated. PROCEDURE: She was made comfortable in the lateral position. Digital rectal exam was normal with no masses, good sphincter tone. The colonoscope was inserted without difficulty all the way to the anastomosis. We saw the ileum and the anastomosis. It looked clean with no evidence of recurrence. Upon withdrawal, we identified a moderate 2.5 to 3 mm polyp at about 40 cm. This was completely excised. Then there were three more, one at 25 cm, the most proximal, it was on a fold. When we could see it, we removed it. There may be a slight bit remaining, but it was now posterior to the fold and on multiple attempts, unable to get it into position to take, so she will be followed up and this will have its pathology, of course, with a frequent followup scope. There were two other small, likely hyperplastic polyps removed. The remainder of the exam as well as retroflexion was normal. The patient tolerated the procedure and was taken to Recovery to be discharged. #[id number] [facility]TDD
[2019-03-15 10:52] VITALS: O2SAT 96
[2019-03-15 10:53] VITALS: BP 152/76; TEMP 96.5
== END 2019-03-15 10:25 | disposition home or self-care (01) ==
LOC: AMB 07:23
PROVIDERS: ATTEND Surgery
DX: Z12.11 Encounter for screening for malignant neoplasm of colon (principal); D12.6 Benign neoplasm of colon, unspecified; K63.5 Polyp of colon; M19.90 Unspecified osteoarthritis, unspecified site; I25.10 Atherosclerotic heart disease of native coronary artery without angina pectoris; F32.9 Major depressive disorder, single episode, unspecified; E78.00 Pure hypercholesterolemia, unspecified; I10 Essential (primary) hypertension; Z80.0 Family history of malignant neoplasm of digestive organs; Z85.038 Personal history of other malignant neoplasm of large intestine; Z90.710 Acquired absence of both cervix and uterus; Z90.49 Acquired absence of other specified parts of digestive tract; Z79.899 Other long term (current) drug therapy

== ENCOUNTER → 2019-05-23 | Outpatient (CLI) | payer OTHER | LOC: GMAJ 10:49 | PROVIDERS: ATTEND Family Medicine | DX: E04.0 Nontoxic diffuse goiter (principal) ==

== ENCOUNTER → 2019-06-26 | Outpatient (CLI) | payer OTHER ==
--- NOTE | 2019-06-26 09:04 | CT ---
EXAM DESCRIPTION: CT head without contrast CLINICAL HISTORY: DIZZINESS AND GIDDINESSS COMPARISON: None available TECHNIQUE: Noncontrast head CT was performed with routine protocol. FINDINGS: Normal mendez-white matter differentiation. Ventricles and sulci are normal for age. No high density hemorrhage, focal edema or shift of the midline. No sulcal effacement. Normal orbital contents. Basilar cisterns appear clear. Intact calvarium with no fracture or lytic lesion. Normal aeration of tympanic cavities and mastoid air cells. No fluid levels in the paranasal sinuses. Skull base appears intact. Symmetrical internal auditory canals. IMPRESSION: No acute intracranial pathologic process. This exam was performed according to our departmental dose-optimization program, which includes automated exposure control, adjustment of the mA and/or kV according to patient size and/or use of iterative reconstruction technique. Total DLP equals 859.97 mGycm. Electronically signed by: Barrington Baig MD 06/26/2019 9:02 AM MASTER CONTROL TECHNICIAN
== END ==
LOC: CT 09:43
PROVIDERS: ATTEND Family Medicine
DX: R42 Dizziness and giddiness (principal)

== ENCOUNTER → 2019-10-22 | Outpatient (CLI) | payer OTHER | LOC: GMAJ 11:02 | PROVIDERS: ATTEND Family Medicine | DX: E04.0 Nontoxic diffuse goiter (principal) ==

== ENCOUNTER 2019-11-25 05:23 | Day surgery (SDC) | payer OTHER ==
[2019-11-25] MEDS ORDERED: TROP1%/CYCLOPEN 1%/PHENYL 2.5% DROPS ONE (05:36)
[2019-11-25] MEDS ORDERED: PROPARACAINE 0.5% OPHTH SOL 15 ML BTTL ONE (05:36)
[2019-11-25] MEDS ORDERED: MOXIFLOXACIN HCL (OPHTH) 1 DROP DROPS ONE (05:36)
[2019-11-25] MEDS: PROPARACAINE 0.5% OPHTH SOL 15 ML BTTL LEFT_EYE ONE (08:52)
[2019-11-25] MEDS ORDERED: MIDAZOLAM INJ 2 MG/2 ML VIAL ONE (08:53)
[2019-11-25] MEDS: MOXIFLOXACIN HCL (OPHTH) 1 DROP DROPS LEFT_EYE ONE ×2 (09:03→09:08)
[2019-11-25] MEDS: LIDOCAINE 1% MPF 2 ML VIAL INJ ONE (09:03)
[2019-11-25] MEDS: TOBRAMYCIN SULF 0.3 % OPHT SOL 1 DROP LEFT_EYE ONE ×2 (09:04→09:08)
[2019-11-25] MEDS: BRIMONIDINE 0.2% OPHTH DROPS LEFT_EYE ONE ×2 (09:04→09:08)
[2019-11-25] MEDS: DEXAMETHASONE 0.1% OPHTH SOL 1 DROP LEFT_EYE ONE ×2 (09:04→09:08)
== END 2019-11-25 09:45 | disposition home or self-care (01) ==
LOC: AMB 05:23
PROVIDERS: ATTEND Ophthalmology
DX: H25.13 Age-related nuclear cataract, bilateral (principal); I10 Essential (primary) hypertension; K21.9 Gastro-esophageal reflux disease without esophagitis; E66.9 Obesity, unspecified; Z79.899 Other long term (current) drug therapy; Z88.5 Allergy status to narcotic agent
CPT/HCPCS: 00142; 66984; J2250

== ENCOUNTER 2020-02-10 05:20 | Day surgery (SDC) | payer OTHER ==
[2020-02-10] MEDS ORDERED: MIDAZOLAM INJ 2 MG/2 ML VIAL ONE (12:25)
[2020-02-10] MEDS ORDERED: PROPARACAINE 0.5% OPHTH SOL 15 ML BTTL RIGHT_EYE ONE (12:31)
[2020-02-10] MEDS ORDERED: MOXIFLOXACIN HCL (OPHTH) 1 DROP DROPS RIGHT_EYE ONE ×2 (12:39→12:57)
[2020-02-10] MEDS ORDERED: DEXAMETHASONE 0.1% OPHTH SOL 1 DROP RIGHT_EYE ONE ×2 (12:40→12:57)
[2020-02-10] MEDS ORDERED: BRIMONIDINE 0.2% OPHTH DROPS RIGHT_EYE ONE ×2 (12:40→12:57)
[2020-02-10] MEDS ORDERED: TOBRAMYCIN SULF 0.3 % OPHT SOL 1 DROP RIGHT_EYE ONE ×2 (12:40→12:57)
[2020-02-10] MEDS ORDERED: LIDOCAINE 1% MPF 2 ML VIAL INJ ONE (12:43)
== END 2020-02-10 13:30 | disposition home or self-care (01) ==
LOC: AMB 05:20
PROVIDERS: ATTEND Ophthalmology
DX: H25.11 Age-related nuclear cataract, right eye (principal); I10 Essential (primary) hypertension; K21.9 Gastro-esophageal reflux disease without esophagitis; E66.9 Obesity, unspecified; Z87.891 Personal history of nicotine dependence; Z79.899 Other long term (current) drug therapy
CPT/HCPCS: 00142; 66984; J2250

== ENCOUNTER → 2020-03-03 | Outpatient (CLI) | payer OTHER | LOC: GMAJ 10:43 | PROVIDERS: ATTEND Family Medicine | DX: I50.32 Chronic diastolic (congestive) heart failure (principal); E11.9 Type 2 diabetes mellitus without complications; I10 Essential (primary) hypertension ==

== ENCOUNTER → 2020-06-30 | Outpatient (CLI) | payer OTHER | LOC: GMAJ 14:20 | PROVIDERS: ATTEND Family Medicine | DX: E04.0 Nontoxic diffuse goiter (principal); I50.32 Chronic diastolic (congestive) heart failure; E78.2 Mixed hyperlipidemia; E11.9 Type 2 diabetes mellitus without complications; I10 Essential (primary) hypertension ==